=== PATIENT | female | born 1985 | race Caucasian/White ===

== ENCOUNTER → 2023-08-28 08:21 | Outpatient (REF) | payer BC, SELFPAY | LOC: PNTC 08:21 | PROVIDERS: ATTENDING PHYSICIAN Obstetrics & Gynecology | DX: O09.529 Supervision of elderly multigravida, unspecified trimester (principal) | CPT/HCPCS: 76816 ==

== ENCOUNTER → 2023-10-12 08:30 | Outpatient (REF) | payer BC, SELFPAY | LOC: PNTC 08:30 | PROVIDERS: ATTENDING PHYSICIAN Obstetrics & Gynecology | DX: O09.529 Supervision of elderly multigravida, unspecified trimester (principal) | CPT/HCPCS: 76816 ==

== ENCOUNTER → 2023-10-13 12:02 | Outpatient (REF) | payer BC, SELFPAY | LOC: CPAP 12:02 | PROVIDERS: ATTENDING PHYSICIAN Obstetrics & Gynecology | DX: Z34.90 Encounter for supervision of normal pregnancy, unspecified, unspecified trimester (principal) | CPT/HCPCS: 87070 ==

== ENCOUNTER 2023-11-06 01:55 | Inpatient (IN) | payer BC, SELFPAY ==
[2023-11-06 02:22] LABS: % Basophils 0.2 % (0-2); % Eosinophils 0.1 % (0-6); % Immature Granulocytes 0.4 % (0-0.5); % Lymphocytes 8.8 % (20.5-51.1); % Monocytes 5.5 % (1.7-9.3); Absolute Immature Granulocytes 0.1 10^3/uL (0-0.05); Absolute Lymphocytes 1.2 10^3/uL (1.2-3.4); Absolute Monocytes 0.8 10^3/uL (0.1-0.6); Absolute Neutrophils 11.9 10^3/uL (1.4-6.5); Hematocrit 34.3 % (37.0-47.0); Hemoglobin 12.7 g/dL (12.0-16.0); Mean Corpuscular Hgb 32.7 pg (27.0-31.0); Mean Corpuscular Volume 88.4 fL (81.0-99.0); Nucleated Red Blood Cells % 0 %; Platelet Count 212 10^3/uL (130-400); Red Blood Cell Count 3.88 10^6/uL (4.20-5.40); Red Cell Dist. Width 12.2 % (11.5-14.5); White Blood Cell Count 13.9 10^3/uL (4.8-10.8)
[2023-11-06] MEDS: PITOCIN 30 UNITS/NSS 500 ML IV (02:56)
[2023-11-06] MEDS: LR 1000 IV (03:00)
[2023-11-06 03:31] VITALS: BP 139/88
[2023-11-06] MEDS: ANCEF 10 IV (03:55)
[2023-11-06 03:59] VITALS: BMI 31.2
[2023-11-06] MEDS: MORPHINE SULFATE 2 MG IV (04:00)
[2023-11-06] MEDS: HEMABATE 250 MCG IM (04:05)
[2023-11-06] MEDS: TUMS 2 TABLET PO (08:26)
[2023-11-06] MEDS: TYLENOL 650 MG PO ×3 (08:26→21:51)
[2023-11-06] MEDS: MOTRIN 600 MG PO ×3 (08:27→21:47)
[2023-11-06] MEDS: SENOKOT-S 1 TABLET PO (21:47)
[2023-11-07 06:55] LABS: Hematocrit 24.3 % (37.0-47.0)
[2023-11-07 07:15] LABS: Hemoglobin 8.7 g/dL (12.0-16.0)
[2023-11-07] MEDS: MOTRIN 600 MG PO ×2 (10:50→21:10)
[2023-11-07] MEDS: TYLENOL 650 MG PO ×2 (10:51→21:10)
[2023-11-07] MEDS: FEOSOL 325 MG PO (10:53)
[2023-11-07 14:34] LABS: Syphilis/T. pallidum Ab Reflex Negative (Negative)
[2023-11-07] MEDS: SENOKOT-S 1 TABLET PO (21:10)
[2023-11-08] MEDS: FEOSOL 325 MG PO (08:34)
[2023-11-08] MEDS: TYLENOL 650 MG PO (08:37)
[2023-11-08] MEDS: MOTRIN 600 MG PO (08:37)
== END 2023-11-08 10:55 | disposition home or self-care (01) | DRG 807 ==
LOC: LDRP 01:55
PROVIDERS: Obstetrics & Gynecology; ADMITTING PHYSICIAN Obstetrics & Gynecology; FAMILY PHYSICIAN Nurse Practitioner Adult Health
PROC: 10D17Z9 Manual Extraction of Products of Conception, Retained, Via Natural or Artificial Opening (ICD-10-PCS; 2023-11-06)
PROC: 10E0XZZ Delivery of Products of Conception, External Approach (ICD-10-PCS; 2023-11-06)
PROC: 0KQM0ZZ Repair Perineum Muscle, Open Approach (ICD-10-PCS; 2023-11-06)
DX: O48.0 Post-term pregnancy (principal); Z37.0 Single live birth; Z3A.40 40 weeks gestation of pregnancy; O70.1 Second degree perineal laceration during delivery; O99.344 Other mental disorders complicating childbirth; F41.9 Anxiety disorder, unspecified; Z82.49 Family history of ischemic heart disease and other diseases of the circulatory system; F32.A Depression, unspecified; O90.81 Anemia of the puerperium; D64.9 Anemia, unspecified
CPT/HCPCS: 88307; 36415; 59025; 85014; 85018; 85025; 86780; 86850; 86900; 86901